=== PATIENT | male | born 1965 | race Caucasian/White ===

== ENCOUNTER 2021-08-25 22:47 | Emergency (ER) | payer BC, SELFPAY ==
[2021-08-25] VITALS (8 sets, daily range): BP systolic 143–176; BP diastolic 96–116; PULSE 70–81; RESP 17–26; TEMP 36.7; O2SAT 96–100
--- NOTE | ~2021-08-25 | XR_ITS ---
EXAMINATION: XR chest 2V EXAM DATE: 08/25/2021 23:27 INDICATION: Right-sided chest pain. TECHNIQUE: Frontal and lateral projections of the chest obtained and reviewed. There is no prior layo dy for comparison. FINDINGS: The lungs are clear. There are no pleural effusions. The cardiomediastinal silhouette i s within normal limits. There is no pneumothorax suspected. The bones and soft tissues are unremark able. IMPRESSION: No acute cardiopulmonary findings. Reviewed, dictated and finalized at location G.
--- NOTE | 2021-08-25 22:50 | ECG_ITS ---
Measurements Intervals [place] Rate: 67 P: 18 ID: [id number] QRS: -31 QRSD: 92 T: -29 QT: 382 QTc: 405 Interpretive Statements SINUS RHYTHM INFERIOR INFARCT, AGE INDETERMINATE BASELINE ARTIFACT- I, II, III, AVR, AVF, V2-V6 ABNORMAL ECG Electronically Signed On 08-26-2021 6:24:11 CDT by Henry Jones D.O.
[2021-08-25 23:48] LABS: Basophils Percent Auto 0.6 % (0.2-1.2); Eosinophils Absolute Auto 0.2 K/mm3 (0-0.3); Hematocrit 44.7 % (42.0-52.0); Hemoglobin 15.1 g/dL (14.0-18.0); Immature Granulocyte Absolute 0.02 K/mm3 (0.00-0.031); Immature Granulocyte Percent A 0.3 % (0-0.5); Immature Platelet Fraction Pct 18.6 % (0.9-11.2); Lymphocytes Absolute Auto 1.69 K/mm3 (0.9-3.2); Lymphocytes Percent Auto 23.3 % (18.3-44.2); Mean Corpuscular HGB Conc 33.8 g/dl (32-36); Mean Corpuscular Hemoglobin 32.6 pg (26-34); Mean Corpuscular Volume 96.5 fl (80-100); Mean Platelet Volume 13.4 fl (7.4-10.4); Monocytes Absolute Auto 0.8 K/mm3 (0.1-0.6); Monocytes Percent Auto 11.3 % (2.6-8.5); Neutrophils Absolute Auto 4.5 K/mm3 (1.3-6.7); Neutrophils Percent Auto 61.5 % (45.5-73.1); Platelet Count Result 174 k/mm3 (150-375); Red Blood Count 4.63 M/mm3 (4.6-6.20); Red Cell Distribution Width 12.8 % (11.5-14.5); White Blood Count 7.3 K/mm3 (4.5-10.0)
[2021-08-25 23:50] LABS: INR 0.9; Partial Thromboplastin Time 27.5 SECONDS (22.3-36.8); Prothrombin Time 11.8 Seconds (11.1-14.7)
[2021-08-26] VITALS (8 sets, daily range): BP systolic 132–139; BP diastolic 85–92; PULSE 66–75; RESP 16–22; O2SAT 98–100
--- NOTE | 2021-08-26 00:36 | PC.NURSE ---
Pt up to bathroom to void. No worsening in chest pain with ambulation. Labs cancelled per lab at 2331, no notification received per this RN. Labs being redrawn at present.
[2021-08-26 00:59] LABS: Alanine Aminotransferase 26 U/L (4-50); Albumin Level 4.6 g/dL (3.5-5.1); Alkaline Phosphatase 61 U/L (38-126); Anion Gap 7 mmol/L (8-16); Aspartate Amino Transferase 28 U/L (17-59); Bilirubin,Total 0.4 mg/dL (0.2-1.3); Blood Urea Nitrogen 16 mg/dL (9-20); Calcium 9.1 mg/dL (8.4-10.2); Carbon Dioxide 32 mmol/L (22-30); Chloride 102 mmol/L (98-107); Estimated CRCL calculation 100 ml/min; Estimated Glomerular Filt Rate > 60; Glucose 110 mg/dL (65-110); Lipase 122 U/L (23-300); Sodium 141 mmol/L (137-145)
[2021-08-26 01:11] LABS: Troponin I < 0.012 ng/mL (0.000-0.034)
--- NOTE | 2021-08-26 01:35 | ED.CHESTPAIN ---
HPI - Chest Pain General Chief Complaint: Chest Pain Stated Complaint: chest pain Time Seen by Provider: 08/25/21 23:15 Source: patient Mode of arrival: ambulatory Limitations: no limitations History of Present Illness HPI narrative: 56-year-old male with past medical history of obesity, and hypertension arrives complaining of chest pain. Patient states pain starts in the epigastric area radiates to the right lower chest worse with a deep breath worse on arrival now resolving. Patient was laying down when he started having the pain he has had GERD before but he said this was more intense. No fever, did have nausea no vomiting. No shortness of breath no leg swelling, no cough, no wheezing. No new medications. Of note patient last had Joaquin sandwich for dinner. Related Data Home Medications Medication Instructions Recorded Confirmed amlodipine 08/25/21 lisinopril 08/25/21 Allergies Allergy/AdvReac Type Severity Reaction Status Date / Time No Known Allergies Allergy Verified 08/25/21 23:15 Review of Systems Review of Systems: CONSTITUTIONAL: no fever, no weight loss, no confusion EYES: no vision changes, no eye pain ENT: no rhinorrhea, no sore throat, no difficulty swallowing CARDIOVASCULAR: chest pain, no leg edema, no palpitations RESPIRATORY: no cough, no shortness of breath, no hemoptysis GASTROINTESTINAL: epigastric and RUQ abdominal pain, positive for nausea, no vomiting, no diarrhea GENITOURINARY: no flank pain, no dysuria, no hematuria SKIN: no rash, no jaundice MUSCULOSKELETAL: no back pain, no trauma. NEUROLOGIC: No headache, no dizziness, no focal weakness PSYCHIATRIC: No hallucinations, no suicidal ideation Exam Narrative: General: alert, afebrile, answering all questions appropriately Head: normocephalic, atraumatic Eyes: EOMI bilaterally, anicteric, no injection ENT: moist mucous membranes, oropharynx patent, no rhinorrhea Neck: supple, trachea midline, no JVD Chest: equal chest rise bilaterally, no chest wall trauma noted Lungs: clear to auscultation bilaterally, respirations unlabored CV: regular rate, no ANA B, calf size equal bilaterally Abd: distended, positive lacey's, no rebound, no gaurding EXT: no deformity noted, moving all extremities equally Skin: warm, dry, no pallor Neuro: alert, oriented x 3; CN 2-12 grossly intact, no dysarthria Psych: affect appropriate, though content normal Course Course Emergency Course: EKG is normal sinus rhythm with no acute changes patient has positive Lacey's originally when he arrived pain now resolved. LFTs normal, lipase normal most likely biliary colic versus GERD. Patient is pain-free, no evidence for acute cardiac event. Patient will be discharged home with pain medication as well medicine for GERD. Patient will return immediately if fever, intractable vomiting, inability tolerate fluids or medications, chest pain shortness of breath. Patient also agrees to follow-up with his primary doctor this week without fail. Vital Signs Vital signs: Vital Signs Temperature 36.7 C 08/25/21 22:53 Pulse Rate 81 08/25/21 22:53 Respiratory Rate 26 H 08/25/21 22:53 Blood Pressure 176/116 H 08/25/21 22:53 Pulse Oximetry 98 08/25/21 22:53 Temperature 36.7 C 08/25/21 22:53 Pulse Rate 66 08/26/21 01:20 Respiratory Rate 16 08/26/21 01:20 Blood Pressure 132/85 08/26/21 01:20 Pulse Oximetry 98 08/26/21 01:20 MDM - Chest Pain Differential Diagnosis Differential diagnosis: Likely pneumothorax, stable angina, chest pain and biliary colic Medical Records Data Attestation: I reviewed the patient's medical records. Lab Data Attestation: I reviewed the patient's lab results. Result diagrams: 08/25/21 23:13 08/26/21 00:37 Labs: Lab Results 08/25/21 08/25/21 08/26/21 Range/Units 23:13 23:14 00:37 WBC 7.3 (4.5-10.0) K/mm3 RBC 4.63 (4.6-6.20) M/mm3 Hgb 15.1 (14.0-18.0) g/dL Hct 44.7
[2021-08-26] MEDS: FAMOTIDINE 20 MG TABLET PO (01:45)
[2021-08-26] MEDS: KETOROLAC 30 MG/ML VIAL (*BKC) IM (01:45)
== END 2021-08-26 01:51 | disposition home or self-care (01) ==
PROVIDERS: Emergency Medicine; Emergency Provider Emergency Medicine; PCP Internal Medicine
DX: R07.89 Other chest pain (principal); K80.50 Calculus of bile duct without cholangitis or cholecystitis without obstruction; I10 Essential (primary) hypertension; E66.9 Obesity, unspecified; Z68.38 Body mass index [BMI] 38.0-38.9, adult
CPT/HCPCS: 36415; 71046; 80053; 83690; 84484; 85025; 85055; 85610; 85730; 93005; 96372; 99284; A9270; J1885

== ENCOUNTER 2022-07-11 12:37 | Emergency (ER) | payer OTHER, SELFPAY ==
[2022-07-11] VITALS (13 sets, daily range): BP systolic 124–149; BP diastolic 79–105; PULSE 64–81; RESP 12–25; TEMP 36.4; O2SAT 93–100
--- NOTE | ~2022-07-11 | CT_ITS ---
EXAMINATION: CT brain wo con DATE: 07/11/2022 15:12 INDICATION: facial tingling/dizzyness . TECHNIQUE: Computed tomography (CT) of the head was performed without intravenous contrast. The mA wa s adjusted according to patient size. Iterative reconstruction technique was employed. The dose-lengt h product was 605.33 mGy-cm. COMPARISON: None FINDINGS: No acute intracranial hemorrhage or extra-axial fluid collection. No hydrocephalus, mass, or herniation. No acute ischemic infarct. Unremarkable dural venous sinus attenuation. No acute osseous abnormality. The aerated spaces are clear. Mild chronic white matter change. Atherosclerotic intracranial calcification. Old left basal ganglia lacunar infarct. IMPRESSION: No acute intracranial process. Reviewed, dictated and finalized at location K.
--- NOTE | 2022-07-11 12:59 | ECG_ITS ---
Measurements Intervals [place] Rate: 61 P: 0 CO: 174 QRS: -40 QRSD: 84 T: -15 QT: 397 QTc: 402 Interpretive Statements SINUS RHYTHM MARKED LEFT AXIS DEVIATION [QRS AXIS < -30] PATTERN CONSISTENT WITH PULMONARY DISEASE COMPARED TO ECG 08/25/2021 23:08:37 LEFT-AXIS DEVIATION NOW PRESENT Electronically Signed On 07-11-2022 15:16:08 CDT by Jena Donato M.D.
[2022-07-11 13:18] LABS: Basophils Absolute Auto 0.1 K/mm3 (0.0-0.1); Basophils Percent Auto 0.8 % (0.2-1.2); Eosinophils Absolute Auto 0.2 K/mm3 (0-0.3); Eosinophils Percent Auto 2.3 % (0-4.4); Hematocrit 46.7 % (42.0-52.0); Hemoglobin 15.7 g/dL (14.0-18.0); Immature Granulocyte Absolute 0.03 K/mm3 (0.00-0.031); Immature Granulocyte Percent A 0.3 % (0-0.5); Lymphocytes Absolute Auto 2.21 K/mm3 (0.9-3.2); Lymphocytes Percent Auto 24.6 % (18.3-44.2); Mean Corpuscular HGB Conc 33.6 g/dl (32-36); Mean Corpuscular Volume 95.3 fl (80-100); Monocytes Absolute Auto 1.1 K/mm3 (0.1-0.6); Monocytes Percent Auto 11.7 % (2.6-8.5); Neutrophils Absolute Auto 5.4 K/mm3 (1.3-6.7); Neutrophils Percent Auto 60.3 % (45.5-73.1); Platelet Count Result 173 k/mm3 (150-375); Red Cell Distribution Width 13.1 % (11.5-14.5)
[2022-07-11 13:29] LABS: Alanine Aminotransferase 23 U/L (6-50); Albumin Level 4.4 g/dL (3.5-5.1); Alkaline Phosphatase 66 U/L (38-126); Anion Gap 9 mmol/L (8-16); Aspartate Amino Transferase 24 U/L (17-59); Bilirubin,Total 0.5 mg/dL (0.2-1.3); Blood Urea Nitrogen 18 mg/dL (9-20); Carbon Dioxide 28 mmol/L (22-30); Chloride 100 mmol/L (98-107); Estimated Glomerular Filt Rate > 60; Glucose 98 mg/dL (65-110); Sodium 137 mmol/L (137-145)
--- NOTE | 2022-07-11 14:32 | ED.DIZZY ---
HPI - Dizziness General Chief Complaint: Dizziness Stated Complaint: lips, tongue tingling and dizzy Time Seen by Provider: 07/11/22 14:31 Source: patient Limitations: no limitations History of Present Illness HPI Narrative: 57 years old white male came to the emergency room by private car because 2 episodes of sudden onset of tingling numbness of the tip of the tongue and lips which one lasted for few seconds then resolved. Currently patient is asymptomatic. He denies any focal weakness, Related Data Home Medications Medication Instructions Recorded Confirmed amlodipine 10 mg tablet 08/25/21 lisinopril 10 mg tablet 08/25/21 Allergies Allergy/AdvReac Type Severity Reaction Status Date / Time No Known Allergies Allergy Verified 01/01/22 15:08 Review of Systems Review of Systems: All systems reviewed & are unremarkable except as noted in HPI and below Exam Narrative: General appearance: Well-developed, well-nourished, intermittent sighing Skin: Normal color Head: Normocephalic, nontraumatic Eyes: Clear conjunctiva ENT: Oropharynx normal, ears normal, nose normal Neck: Supple, nontender Chest and respiratory: Airway patent, no respiratory distress, no accessory muscle use Heart: Regular rate/rhythm Abdomen: Soft, nontender, no organomegaly, quiet bowel sounds Vascular: Normal peripheral pulses, normal capillary refill. Musculoskeletal: Normal range of motion, nontender back Neurologic: Alert and oriented ?3, ASSISTANT BOYS TRACK COACH is normal as tested, no gross motor deficit Course Course Emergency Course: Anxiety-like symptoms, stress reaction is my concern. Work-up did not show anything to explain patient condition. Vital Signs Vital signs: Vital Signs Temperature 36.4 C 07/11/22 12:59 Pulse Rate 73 07/11/22 12:59 Respiratory Rate 20 07/11/22 12:59 Blood Pressure 149/105 H 07/11/22 12:59 Pulse Oximetry 100 07/11/22 12:59 Oxygen Delivery Room Air 07/11/22 12:59 Temperature 36.4 C 07/11/22 12:59 Pulse Rate 81 07/11/22 13:57 Respiratory Rate 16 07/11/22 13:54 Blood Pressure 131/99 H 07/11/22 13:55 Pulse Oximetry 99 07/11/22 13:54 Oxygen Delivery Room Air 07/11/22 12:59 MDM - Dizziness Lab Data Result diagrams: 07/11/22 13:10 07/11/22 13:10 Labs: Lab Results 07/11/22 07/11/22 Range/Units 13:10 13:10 WBC 9.0 (4.5-10.0) K/mm3 RBC 4.90 (4.6-6.20) M/mm3 Hgb 15.7 (14.0-18.0) g/dL Hct 46.7 (42.0-52.0) % MCV 95.3 (80-100) fl MCH 32.0 (26-34) pg MCHC 33.6 (32-36) g/dl RDW 13.1 (11.5-14.5) % Plt Count 173 (150-375) k/mm3 MPV 13.0 H (7.4-10.4) fl Immature Gran % (Auto) 0.3 (0-0.5) % Neut % (Auto) 60.3 (45.5-73.1) % Lymph % (Auto) 24.6 (18.3-44.2) % [place] % (Auto) 11.7 H (2.6-8.5) % Eos % (Auto) 2.3 (0-4.4) % Baso % (Auto) 0.8 (0.2-1.2) % Lymph # (Auto) 2.21 (0.9-3.2) K/mm3 [place] # (Auto) 1.1 H (0.1-0.6) K/mm3 Eos # (Auto) 0.2 (0-0.3) K/mm3 Baso # (Auto) 0.1 (0.0-0.1) K/mm3 Abs Immat Gran (auto) 0.03 (0.00-0.031) K/mm3 Absolute Neuts (auto) 5.4 (1.3-6.7) K/mm3 Absolute Nucleated RBC 0.0 (0.0-0.012) K/mm3 Nucleated RBC % 0.0 (0.0-0.2) % Sodium 137 (137-145) mmol/L Potassium 4.0 (3.4-5.0) mmol/L Chloride 100 (98-107) mmol/L Carbon Dioxide 28 (22-30) mmol/L Anion Gap 9 (8-16) mmol/L BUN 18 (9-20) mg/dL Creatinine 1.00 (0.7-1.3) mg/dL Estim Creat Clear Calc Not Reportable Estimated GFR > 60 (59 - ) Glucose 98 (65-110) mg/dL Calcium 9.0 (8.4-10.2) mg/dL Total Bilirubin 0.5 (0.2-1.3) mg/dL AST 24 (17-59) U/L ALT 23
== END 2022-07-11 14:50 | disposition home or self-care (01) ==
PROVIDERS: Emergency Provider Emergency Medicine; PCP Internal Medicine
DX: F41.9 Anxiety disorder, unspecified (principal); R94.31 Abnormal electrocardiogram [ECG] [EKG]
CPT/HCPCS: 36415; 70450; 80053; 85025; 93005; 99284

== ENCOUNTER 2023-05-09 10:35 | Outpatient (CLI) | payer BC, SELFPAY ==
--- NOTE | ~2023-05-09 | US_ITS ---
EXAMINATION: US soft tissue UE RT DATE: 05/09/2023 10:53 INDICATION: Painless palpable lump at the lateral right humerus TECHNIQUE: Multiple grayscale and Doppler ultrasound images of the region of concern at the lateral m id right upper arm were obtained. COMPARISON: None FINDINGS: There is a 4.8 x 3.5 x 2.7 cm relatively hyperechoic intramuscular mass at the region of concern. On the cine images this appears to be located within the superficial aspect of the surrounding more hypo echoic musculature. Small amount of internal vascular flow identified on color Doppler. IMPRESSION: 1. 4.8 x 3.7 x 2.7 cm nonspecific intramuscular soft tissue mass at the lateral mid right upper arm w hich is most concerning for neoplasm either benign or malignant. Would recommend further evaluation w [facility] pre and postcontrast MRI of the right upper arm to include the axilla. Dr. Hernandez discussed the se findings with Dr. Edwards at 11:15 AM. Reviewed, dictated and finalized at location A. IMPRESSION: 1. 4.8 x 3.7 x 2.7 cm nonspecific intramuscular soft tissue mass at the lateral mid right upper arm which is most concerning for neoplasm either benign or mal ignant. Would recommend further evaluation with pre and postcontrast MRI of the right upper arm to include the axilla. Dr. Hernandez discussed these findings w [facility] Dr. Edwards at 11:15 AM.
== END 2023-05-09 10:36 | disposition home or self-care (01) ==
LOC: CHSIMG 10:37
PROVIDERS: PCP Internal Medicine; Visit Provider Internal Medicine
DX: R22.31 Localized swelling, mass and lump, right upper limb (principal)
CPT/HCPCS: 76882

== ENCOUNTER 2023-05-12 10:36 | Outpatient (CLI) | payer BC, SELFPAY ==
--- NOTE | ~2023-05-12 | MR_ITS ---
EXAMINATION: MR humerus RT wo/w con DATE: 05/12/2023 12:03 INDICATION: Right arm mass TECHNIQUE: Magnetic resonance imaging (MRI) of the right upper arm was performed without and with 20 mL Multihance intravenous contrast. A marker was placed over the mass. Sequences included axial, sag ittal and coronal T1-weighted FSE and fluid sensitive FSE STIR, axial T1-weighted FS FSE and post con trast axial, sagittal and coronal T1-weighted FS FSE. COMPARISON: Ultrasound dated 05/09/2023 FINDINGS: The intramuscular mass of concern arises in the mid to distal upper arm along the fascial plane separ ating the lateral head of the triceps and the possible brachial radialis and along side the radial ne urovascular bundle but which exerts mass effect. The mass which measures 6.9 cm proximal to distal an d 4.2 x 2.4 cm in maximal transaxial dimensions demonstrates homogeneous T1-weighted and saturable fa t signal consistent with an intramuscular lipoma. No abnormal enhancing soft tissue component. No oth er abnormal masses or fluid collections identified. Visualized musculature is otherwise unremarkable. Normal bone marrow signal throughout. IMPRESSION: 1. Right upper arm mass of concern corresponds to a benign 6.9 x 4.2 x 2.4 cm intramuscular lipoma. Reviewed, dictated and finalized at location A. IMPRESSION: 1. Right upper arm mass of concern corresponds to a benign 6.9 x 4.2 x 2.4 cm i ntramuscular lipoma.
== END 2023-05-12 10:37 | disposition home or self-care (01) ==
LOC: CHSIMG 10:41
PROVIDERS: PCP Internal Medicine; Visit Provider Internal Medicine
DX: R22.31 Localized swelling, mass and lump, right upper limb (principal)
CPT/HCPCS: 73220; A9577

== ENCOUNTER 2023-06-13 00:49 | Day surgery (SDC) | payer BC, SELFPAY ==
[2023-06-09 08:21] VITALS: BMI 35.4
--- NOTE | 2023-06-09 08:27 | PC.NURSE ---
Report to the Outpatient Waiting Room, entrance under the green pavilion located off [facility], at time__1130_ on date _06/13/23. Planned Procedure Time: 1330_. Time changes happen often and if your time is changed the preop area will call you the afternoon before. - You and your visitor will be asked to self-screen and do not enter if you have any COVID symptoms. - A mask is optional within the hospital at this time. Patients may have clear liquids (water, carbonated beverages, clear teas, apple juice) until 3 hours prior to surgery with a maximum of 20 ounces. - No food from midnight until time of surgery - Infants may have breast milk until 4 hours before surgery, infant formula 6 hours prior to surgery. - Children will be allowed to drink immediately following surgery. If applicable, please bring a bottle or sippy cup to assist with drinking. Juice, water, soda, and popsicles are readily available. For infants on formula, please bring formula the day of surgery. Pacifiers are allowed. Take the following medications with a SIP of water the morning of surgery: __amlodipine, escitalopram DO NOT STOP ANY OF YOUR OTHER PRESCRIPTION MEDICATIONS PRIOR TO SURGERY ?EXCEPT THE FOLLOWING Medications to discontinue per physician none Date to take last dose Please no make-up, nail thai, hairspray, perfume, deodorant, or body powder the day of surgery. No jewelry (including any body piercings) or valuables the day of surgery, leave them at home. Please take a shower or bath the night before, or the morning of, surgery with HIBICLENS antibacterial soap. Wear comfortable, loose fitting clothing. Children are encouraged to wear pajamas. - Jewelry must be removed prior to entering the operating room. Rings and piercings that are not removed may be cut off. - The hospital will not accept responsibility for valuables. - Please leave all valuables, including medications, at home the day of surgery. If you are going home after surgery, a licensed garbage truck driver must drive you home. - NO public transportation without another adult if you receive anesthesia. - We recommend that an adult stay with you for 24 hours following discharge. - We also recommend that you do not drive, make important decision, drink alcoholic beverages, or take any drugs that were not prescribed by your health care provider for at least 24 hours after your discharge time. For Pediatric surgeries, we recommend two adults accompany the child home. Follow any additional instructions given to you from your surgeon. If you or anyone in your household have experienced Covid symptoms in the past week, please notify your surgeon or the nurse liaison at the phone number below for possible testing. Telephone instructions given to __patient and asked if any additional questions and then verbalized understanding. Patient advised to call surgeon office or pre surgery nurse liaison [phone] if any additional questions.
--- NOTE | 2023-06-10 18:48 | WPDANESEPP ---
Anes - Eval Pre Procedure Procedure: Operation Date: 06/13/23 13:30 Proposed Procedures p Excision of Right Upper Arm Intramuscular Lipoma - Benedict Cuello MD Date/Time: 06/10/23 18:48 Pre Op Diagnosis: right upper arm lipoma Patient Data Age: 58 Gender: M Height: 1.78 m Weight: 112 kg Allergies Allergy/AdvReac Type Severity Reaction Status Date / Time No Known Allergies Allergy Verified 06/09/23 08:19 Home Medications Medication Instructions Recorded Confirmed Type amlodipine 10 mg tablet 10 mg PO DAILY 08/25/21 06/09/23 History lisinopril 10 mg tablet 10 mg PO DAILY 08/25/21 06/09/23 History allopurinol 100 mg tablet 300 mg PO DAILY 05/17/23 06/09/23 History escitalopram oxalate 10 mg tablet 10 mg PO DAILY 05/17/23 06/09/23 History Patient hx anesthesia problems: none Family hx anesthesia problems: none Results Review: All pre-operative results and documents have been reviewed as part of the pre-operative evaluation. FOR[facility]LY [facility] Past Medical History Medical History (Updated 06/10/23 @ 18:48 by Mary Alba CRNA) Anxiety High blood pressure Obesity (BMI 30-39.9) Surgical History Surgical History Hx of hernia repair Hx of thumb surgery Family History Family History Other Hypertension Social History Social History Smoking status: Never smoker Alcohol intake: current Drinks per week: 10 Alcohol use details: Socially Living arrangements: with family Exam Day of Procedure 06/10/23 18:48
[2023-06-13] MEDS: LACTATED RINGERS 1,000 ML 30 ML IV CONT (12:20)
[2023-06-13 12:22] VITALS: BP 149/99; PULSE 65; RESP 16; TEMP 36.5; O2SAT 97
--- NOTE | 2023-06-13 12:35 | WPDHPUPDATE1 ---
History and Physical Update Update Date/Time: 06/13/23 12:35 History and Physical has been reviewed, including an updated exam of the patient. There are NO changes in the patient's condition. Risks, benefits, and alternatives have been discussed and questions answered. Patient agrees to proceed with procedure.
--- NOTE | 2023-06-13 13:44 | P.PNAN_ITS ---
Anes - Eval Final PreProcedure Day of Procedure 06/13/23 13:44 Patient weight: obese Heart: regular rate and rhythm Lungs: clear to auscultation Airway: Mallampati scale class II Neurological: alert and oriented Last oral intake: >/= 8 hours ASA classification: II Emergent: no Anesthetic plan: proceed Anesthesia type and monitoring: general GIVS and standard monitoring Results Review: All pre-operative results and documents have been reviewed as part of the pre- operative evaluation. Informed Consent: The patient's anesthetic plan and its attendant risks and benefits were discussed with the patient/family/POA. Questions were solicited and answers provided to the satisfaction of the patient/family/POA.
[2023-06-13] MEDS: ceFAZolin 2 GM/D5W 50 ML 2 GM/50 ML BAG IVPB (13:49)
[2023-06-13] MEDS: BUPivacaine HCL 0.5% 10 ML AMP 20 ML INFILTRATE (14:15)
[2023-06-13 15:00] VITALS: BP 145/92; PULSE 83; RESP 16; O2SAT 97
[2023-06-13 15:30] VITALS: BP 143/90; PULSE 70; RESP 16
[2023-06-13] MEDS: oxyCODONE HCL (*CRX) 5 MG TAB IR PO (15:40)
--- NOTE | 2023-06-13 15:53 | P.OP_ITS ---
Procedure Note - Detailed Date of Procedure 06/13/23 Pre-op Diagnosis right upper arm lipoma Post-op Diagnosis Other (Right upper arm intramuscular lipoma.) Procedure Performed Excision of right upper arm intramuscular lipoma Surgeon Benedict Cuello MD Anesthesia General Indications Patient is a 58-year-old white male presented with a slowly enlarging mass in the dorsal lateral aspect of the right upper in what appeared to be in the triceps muscle. MRI preoperatively revealed this to be an intramuscular lipom atous mass. Malignant features were seen. He presents now for excision of this intramuscular lipomatous mass. Findings [id number] deep intramuscular lipomatous appearing mass extending down to the humerus. Description of Procedure After informed consent was obtained patient brought to the operating room was placed in a supine position then general LMA anesthesia was administered. The right arm was prepped circumferentially in a sterile fashion all the way from the fingertips to the axilla in the usual sterile fashion. A time-out was then performed correctly identifying the patient as well as procedure to be performed. Site marking was verified. He was given Ancef for perioperative IV antibiotics. I then proceeded to make a longitudinal incision over the mass in the dorsal lateral aspect of the right upper arm. Dissection carried down through the dermis skin with a scalpel then electrocautery was used to dissect down through the subcutaneous tissues until I reached the fascia. I then opened the fascia utilizing electrocautery to expose the distal fibers of the triceps muscle. I could easily see a lipomatous mass within the triceps muscle with a good capsule around it. I then placed retractors to improve exposure and then proceeded to dissect around the lipomatous mass electrocautery taking care to not divide too much muscle. The a lipomatous mass extended all the way down to the humerus bone. It did not invade into the bone. I then excised off the the ostomy utilized electrocautery and then measured the mass. Was 6cm in length by 5cm in width by 2cm in depth. It was sent to pathology for examination. There was 1 bleeding artery which was likely a muscular artery which was ligated with a 2-0 chromic suture to achieve hemostasis. The wound was then irrigated with sterile saline solution hemostasis was good. I then close incision by reapproximating the edges of the fascia utilizing interrupted 2-0 Vicryl sutures. Skin the subcutaneous tissues were approximated utilizing interrupted 3-0 Vicryl sutures. The skin edges were approximated Adelina running subcuticular 4-0 Monocryl suture. Incision was then cleaned and then skin glue was applied. 4x4 gauze Tegaderm and a Gopal wrap was used for final dressing. The patient tolerated the procedure well no complications. All sponges, needles, and instrument counts were correct at the end procedure. EBL was __50_cc. The patient was awakened and taken to recovery in stable and satisfactory condition. Estimated Blood Loss -50.0 Drains No Packing No Pathology Yes (Lipomatous mass to pathology) Complications No immediate complications Condition Stable Disposition PACU [facility] Billing Surgery - Charge Forward: Surgery Billing
== END 2023-06-13 16:09 | disposition home or self-care (01) ==
PROVIDERS: PCP Internal Medicine; Visit Provider Surgery
PROC: (CPT 11406; principal; 2023-06-13 13:30)
DX: D17.21 Benign lipomatous neoplasm of skin and subcutaneous tissue of right arm (principal); I10 Essential (primary) hypertension; F41.9 Anxiety disorder, unspecified; E66.9 Obesity, unspecified; Z68.36 Body mass index [BMI] 36.0-36.9, adult; Z82.49 Family history of ischemic heart disease and other diseases of the circulatory system
CPT/HCPCS: 11406; 24073; 88304; A9270; J0690; J2250; J2405; J2704; J3010; J7120

== ENCOUNTER 2024-10-30 14:32 | Outpatient (CLI) | payer SELFPAY ==
--- NOTE | ~2024-10-30 | MR_ITS ---
EXAMINATION: MR knee RT wo con DATE: 10/30/2024 16:00 INDICATION: Right knee pain TECHNIQUE: Magnetic resonance imaging (MRI) of the right knee was performed without intravenous contr ast. Sequences included coronal PD-weighted FSE, coronal PD-weighted FS FSE, sagittal T2-weighted FS E, sagittal PD-weighted FS FSE and axial PD weighted fat saturated FSE. COMPARISON: None. FINDINGS: Medial compartment: Complex tear of the body and posterior horn of the medial meniscus. There is partial thickness chondr al ulceration involving greater than 50% the cartilage thickness but without degenerative subchondral changes at the anterior to central weightbearing medial femoral condyle. Additional deep chondral ul ceration with mild underlying subarticular edema-like signal change along the plantar medial rim of t he medial tibial plateau. Lateral compartment: Lateral meniscus is normal. Small region of heterogeneous cartilage signal suggesting partial-thickne ss fissuring at the medial side of the lateral tibial plateau. Articular cartilage is otherwise dayanara l. Patellofemoral compartment: There is deep trochlear chondral ulceration with underlying small central subchondral osteophytes at the central aspect of the lateral trochlea and at the inferior aspect of the medial trochlea. There a re some shallow chondral surface irregularity along the central aspect of the lateral patellar facet. Ligaments and tendons: Anterior and posterior cruciate ligaments are normal. The medial collateral ligament and fibular yumiko ateral ligament complex are normal. The extensor mechanism is normal with band of magic angle artifac t in the distal patellar tendon.. The visualized medial and lateral hamstring tendons as well as the iliotibial band are normal. Fluid: Physiologic amount of fluid in the joint space. No loose osteochondral bodies identified. Osseous/other: Aside from the previous noted subarticular edema-like signal change at the medial tibial plateau ther e is normal marrow signal throughout. No fracture or pathologic marrow replacing process. IMPRESSION: 1. Complex medial meniscal tear. 2. 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 Reviewed, dictated and finalized at location A. ICATION OPERATIONS ENGINEER IMPRESSION: 1. Complex medial meniscal tear. 2. Mild tricompartmental osteoarthritis with medial and patellofemoral compartm ent predominance where there are regions of moderate and high-grade chondromala parker.
== END 2024-10-30 14:33 | disposition home or self-care (01) ==
PROVIDERS: Visit Provider Internal Medicine
DX: S83.241A Other tear of medial meniscus, current injury, right knee, initial encounter (principal); X58.XXXA Exposure to other specified factors, initial encounter; M17.11 Unilateral primary osteoarthritis, right knee; M94.261 Chondromalacia, right knee
CPT/HCPCS: 73721

== ENCOUNTER 2025-06-04 15:11 | Outpatient (CLI) | payer BC, SELFPAY ==
--- NOTE | ~2025-06-04 | XR_ITS ---
EXAMINATION: XR chest 2V 06/04/2025 15:56 INDICATION: Chest tightness and dyspnea PROCEDURE: 2 view chest COMPARISON: 08/25/2021 FINDINGS: The lungs are clear. The cardiomediastinal silhouette is within normal limits. There are no pleural effusions. There is no pneumothorax suspected. IMPRESSION: 1: NO ACUTE CARDIOPULMONARY DISEASE. Reviewed, dictated and finalized at location B.
--- OUTSIDE RECORDS SUMMARY | 2025-06-04 15:14 | XMS_ITS | Referral Summary ---
Author Organization [facility] Address [address] [place] [id number] Care Team Providers Care Pockets And Pieces Necktie Operator Name Role Phone Ben Edwards MD Primary Care Provider [phone] Allergies No known active allergies Medications allopurinoL (ZYLOPRIM) 300 mg tablet TAKE 1 TABLET BY MOUTH ONCE DAILY START THIS WHEN ACUTE FLARE OF GOUT RESOLVES 11/27/2020 Active amLODIPine (NORVASC) 10 mg tablet Take 10 mg by mouth daily 11/20/2020 Active lisinopriL (PRINIVIL,ZESTR [place]) 10 mg tablet Take 10 mg by mouth nightly at bedtime. 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 Gender Identity Not on file Sexual Orientation Not on file Last Filed Vital Signs Vital Sign Reading Time Taken Comments Blood Pressure - - Pulse - - Temperature - - Respiratory Rate - - Oxygen Saturation - - Inhaled Oxygen Concentration - - Weight 116.1 kg (256 lb) 12/30/2022 11:28 AM REDIPPER Height 177.8 cm (5' 10) 12/30/2022 11:28 AM REDIPPER Body Mass Index 36.73 12/30/2022 11:28 AM REDIPPER Plan of Treatment Not on file [place] Care Teams Pockets And Pieces Necktie Operator Relationship Specialty Start Date End Date Ben Edwards MD PCP - General Internal Medicine 12/30/22
--- OUTSIDE RECORDS SUMMARY | 2025-06-04 15:14 | XMS_ITS | Clinical Summary ---
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 Gender Identity Not on file Sexual Orientation Not on file Obstetrics History Last Filed Vital Signs Vital Sign Reading Time Taken Comments Blood Pressure - - Pulse - - Temperature - - Respiratory Rate - - Oxygen Saturation - - Inhaled Oxygen Concentration - - Weight 116.1 kg (256 lb) 12/30/2022 11:28 AM SALES INSPECTOR Height 177.8 cm (5' 10) 12/30/2022 11:28 AM SALES INSPECTOR Body Mass Index 36.73 12/30/2022 11:28 AM SALES INSPECTOR Plan of Treatment Health Maintenance Due Date Last Done Comments Colon Cancer Screening-Colonoscopy 1965 Depression Screening 1965 Hepatitis C Screening 1965 Prostate Cancer Screening-PSA 1966 Hepatitis B Screening 1984 Regular Well Visit/Exam 18-64 1984 Zoster Vaccine (1 of 2) 2016 Influenza Vaccine (Season Ended) 2025 DTaP/Tdap/Td Vaccine (2 - Td or Tdap) 05/20/2030 05/20/2020 Pneumococcal vaccine <65 Aged Out No longer eligible based on patient's age to complete this topic [place] Care Teams Fisher Lampara Net Relationship Specialty Start Date End Date Ben Edwards MD PCP - General Internal Medicine 12/30/22
[2025-06-04 15:32] LABS: Hematocrit 45.3 % (40.0-54.0); Hemoglobin 15.7 g/dL (14.0-18.0); Mean Corpuscular HGB Conc 34.7 g/dL (32-36); Mean Corpuscular Hemoglobin 32.0 pg (27.0-31.0); Mean Corpuscular Volume 92.4 fL (78.0-102.0); Platelet Count Result 182 K/mm3 (150-420); Red Blood Count 4.90 M/mm3 (4.70-6.10); White Blood Count 7.4 K/mm3 (4.8-10.8)
[2025-06-04 15:44] LABS: Alanine Aminotransferase 31 U/L (6-50); Albumin Level 4.2 g/dL (3.5-5.1); Alkaline Phosphatase 57 U/L (38-126); Anion Gap 6 mmol/L (4-12); Aspartate Amino Transferase 28 U/L (17-59); Bilirubin,Total 0.5 mg/dL (0.2-1.3); Blood Urea Nitrogen 21 mg/dL (9-20); Calcium 8.7 mg/dL (8.4-10.2); Carbon Dioxide 27 mmol/L (22-30); Chloride 106 mmol/L (98-107); Creatine Kinase 52 U/L (55-170); Estimated Glomerular Filt Rate > 60; Glucose 117 mg/dL (65-110); Osmolality Calculated 292 mOsm/kg (285-295); Potassium 4.1 mmol/L (3.4-5.0); Sodium 139 mmol/L (137-145); Total Protein 7.3 g/dL (6.3-8.2)
[2025-06-04 15:58] LABS: NT Pro B Type Natriuretic Pept < 20 pg/mL (19.9-100); Troponin I < 0.012 ng/mL (0.000-0.034)
[2025-06-04 16:02] LABS: Add Urine Microscopic? NO; Appearance Urine Clear (Clear); Glucose Urine UA Negative (Negative); Leukocyte Esterase Ur Negative (Negative); Nitrate Urine Negative (Negative); Specific Grav Ur 1.010 (1.010-1.020)
[2025-06-04 16:17] LABS: Thyroid Stimulating Hormone 1.630 uIU/mL (0.465-4.680)
== END 2025-06-04 15:12 | disposition home or self-care (01) ==
LOC: CHSIMG 15:12
PROVIDERS: PCP Internal Medicine; Visit Provider Internal Medicine
DX: R07.89 Other chest pain (principal); R06.00 Dyspnea, unspecified
CPT/HCPCS: 36415; 71046; 80053; 81003; 82550; 82553; 83880; 84443; 84484; 85027; 85380

== ENCOUNTER 2025-08-02 08:46 | Outpatient (CLI) | payer BC, SELFPAY ==
--- NOTE | ~2025-08-02 | NM_ITS ---
EXAMINATION: NM stress w perf spect multi DATE: 08/02/2025 12:02 INDICATION: Dyspnea TECHNIQUE: Rest images were obtained following intravenous administration of 10.6 mCi Tc99m tetrofosmin (iSirona). The patient performed an exercise activity. At peak exercise, 34 mCi Tc99m tetrofosmin (Myoview) was administered intravenously, and stress images were obtained. Data was reconstructed into short axis and horizontal and vertical long axis SPECT images. Gated SPECT images were also obtained. COMPARISON: None. FINDINGS: There is normal left ventricular perfusion without definite evidence of reversible or fixed perfusion abnormality to suggest ischemia or infarction. There is normal left ventricular chamber size, wall motion and ejection fraction. Left ventricular ejection fraction measures 64%. IMPRESSION: 1. Normal myocardial perfusion at rest and during stress. 2. Left ventricular ejection fraction measuring 64%. Reviewed, dictated and finalized at location A.
--- NOTE | 2025-08-02 08:48 | ECHO_ITS ---
Patient Info Name: Mark Garcia Age: 60 years : 1965 Gender: Male Ht: 70 in Wt: 260 lbs BSA: 2.46 m2 HR: 69 bpm BP: 156 / 104 mmHg Technical Quality: Fair Exam Date: 08/02/2025 9:03 AM Patient Status: O Admit Date: 08/02/2025 Exam Type: CA echo doppler color flow Complete two-dimensional, color flow and Doppler transthoracic echocardiogram is performed. Staff Referring Physician: Henry Jones DO Managed Services Consultant: Shahana Dobbs Attending Provider: Henry Jones DO Summary 1. Complete two-dimensional, color flow and Doppler transthoracic echocardiogram is performed. 2. Left ventricular chamber dimension is normal. 3. Left ventricular systolic function is normal, estimated at 60-65. 4. The left ventricular diastolic function is normal. 5. E/e' 9 is minimally elevated. 6. There is mild mitral valve regurgitation. Left Ventricle E/e' 9 is minimally elevated. Left ventricular chamber dimension is normal. Left ventricular systolic function is normal, estimated at 60-65. The left ventricular diastolic function is normal. Right Ventricle Right ventricular chamber dimension is normal. Right ventricular systolic function is normal and with normal TAPSE 2.2 cm. Left Atria Left atrial chamber dimension is normal. Right Atria Right atrial chamber dimension is normal. Aortic Valve The aortic valve is trileaflet. There is no aortic valve stenosis. There is no aortic valve regurgitation. Pulmonic Valve There is no pulmonic regurgitation. Mitral Valve There is no mitral valve stenosis. There is mild mitral valve regurgitation. Tricuspid Valve There is no tricuspid valve regurgitation. Pericardium/Pleural There is no pericardial effusion. Inferior Vena Cava Normal inferior vena cava with >50% collapse upon inspiration consistent with normal right atrial pressure, 5 mmHg. Aorta The aortic root size at the sinus of Valsalva is normal. Left Ventricular Outflow Tract Name Value Normal LVOT 2D LVOT Diameter 2.1 cm LVOT Doppler LVOT Peak Velocity 82 cm/s LVOT Peak Gradient 3 mmHg LVOT Mean Gradient 2 mmHg LVOT VTI 18 cm LVOT VTI/AV VTI Ratio 0.7 LVOT Stroke Volume 61 ml LVOT CO 12.2 l/min LVOT CI 5.0 l/min/m2 Pulmonic Valve Name Value Normal PV Doppler PV Peak Velocity 95 cm/s PV Peak Gradient 4 mmHg Mitral Valve Name Value Normal MV Diastolic Function MV E Peak Velocity 90 cm/s MV A Peak Velocity 70 cm/s MV E/A 1.3 MV Decel Time (PW) 224 ms MV Annular TDI MV E/e' (Septal) 10.5 MV E/e' (Lateral) 8.4 MV E/e' (Average) 9.5 Tricuspid Valve Name Value Normal Estimated PAP/RSVP RA Pressure 5 mmHg <=5 TV Annular TDI TV Lateral Lu s' Velocity 10.5 cm/s >=9.5 Aorta Name Value Normal Ascending Aorta Ao Root Diameter (MM) 3.5 cm Ao Root Diam Index (MM) 1.4 cm/m2 Aortic Valve Name Value Normal AV Doppler AV Peak Velocity 112 cm/s AV Peak Gradient 5 mmHg AV Mean Gradient 3 mmHg AV VTI 27 cm AV Area (Cont Eq VTI) 2.3 cm2 >=3.0 AV Area (Cont Eq Preston) 2.5 cm2 AV DI (Preston) 0.73 AV Regurgitation 2D LVOT Area 3.4 cm2 Ventricles Name Value Normal LV Dimensions 2D/MM IVS Diastolic Thickness (2D) 1.3 cm 0.6-1.0 LVID Diastole (2D) 5.8 cm 4.2-5.8 LVIW Diastolic Thickness (2D) 1.2 cm 0.6-1.0 LVID Systole (2D) 4.2 cm 2.5-4.0 LVOT Diameter 2.1 cm LV Mass (2D Cubed) 321.36 g 88.00-224.00 LV Mass Index (2D Cubed) 131 g/m2 49-115 Relative Wall Thickness (2D) 0.43 <=0.42 LV Fractional Shortening/Ejection Fraction 2D/MM LV Fractional Shortening (2D) 28 % 25-43 LV EF (2D Teichholz) 54 % LV Diastolic Volume (4C MOD) 127 ml LV EF (4C MOD) 65 % LV Diastolic Volume (2C MOD) 125 ml LV EF (2C MOD) 56 % LV Diastolic Volume (BP MOD) 129 ml 62-150 LV Diastolic Volume Index (BP MOD) 52 ml/m2 34-74 LV Systolic Volume (BP MOD) 50 ml 21-61 LV Systolic Volume Index (BP MOD) 20 ml/m2 11-31 LV EF (BP MOD) 61 % 52-72 LV Diastolic Length (4C) 8.6 cm LV Systolic Length (4C) 6.4 cm LV Stroke Volume (4C MOD) 82 ml Atria Name Value Normal LA Dimensions LA Volume (4C A-L) 67 ml LA Volume (BP A-L) 56 ml RA Dimensions RA Area (4C) 21.1 cm2 <=18.0 Report Signatures
--- OUTSIDE RECORDS SUMMARY | 2025-08-02 08:54 | XMS_ITS | Clinical Summary ---
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 Gender Identity Not on file Sexual Orientation Not on file Obstetrics History Last Filed Vital Signs Vital Sign Reading Time Taken Comments Blood Pressure - - Pulse - - Temperature - - Respiratory Rate - - Oxygen Saturation - - Inhaled Oxygen Concentration - - Weight 116.1 kg (256 lb) 12/30/2022 11:28 AM TV TECHNICIAN Height 177.8 cm (5' 10) 12/30/2022 11:28 AM TV TECHNICIAN Body Mass Index 36.73 12/30/2022 11:28 AM TV TECHNICIAN Plan of Treatment Health Maintenance Due Date Last Done Comments Colon Cancer Screening-Colonoscopy 1966 Depression Screening 1966 Hepatitis C Screening 1966 Prostate Cancer Screening-PSA 1966 Hepatitis B Screening 1984 Regular Well Visit/Exam 18-64 1984 Zoster Vaccine (1 of 2) 2016 Influenza Vaccine (#1) 2025 DTaP/Tdap/Td Vaccine (2 - Td or Tdap) 05/20/2030 05/20/2020 Pneumococcal vaccine <65 Aged Out No longer eligible based on patient's age to complete this topic [place] Care Teams Chute Feeder Relationship Specialty Start Date End Date Ben Edwards MD PCP - General Internal Medicine 12/30/22
--- NOTE | 2025-08-02 09:25 | EST_ITS ---
Patient Info Name: Mark Garcia Age: 60 years : 1965 Gender: Male Ht: 70 in Wt: 260 lbs BSA: 2.46 m2 HR: 57 bpm BP: 125 / 72 mmHg Exam Date: 08/02/2025 9:25 AM Patient Status: O Admit Date: 08/02/2025 Exam Type: CA stress test treadmill w NM A nuclear stress test was performed. Staff Referring Physician: Henry Jones DO Attending Provider: Henry Jones DO Exercise Technologist: Amanda Poe Exercise Physician: Henry Jones DO Summary 1. 1. Negative Jose A exercise stress test for ischemic ST changes by ECG criteria. 2. 2. Good functional capacity, achieving 10 METs of workload. 3. 3. Appropriate HR response to exercise. 4. 4. Appropriate HR recovery at 1 minute post exercise. 5. 5. Nuclear scan to follow and will be reported separately. Please correlate with it. 6. 6. Patient informed of the above results. Protocol: Jose A Stress ECG Details Stage: REST Duration (min): 1 min : 8 sec Speed (mph): 0.0 Grade (%): 0 HR (bpm): 59 SBP (mmHg): 125 DBP (mmHg): 72 METS: --- Stage: REST Duration (min): 6 min : 28 sec Speed (mph): 0.0 Grade (%): 0 HR (bpm): 77 SBP (mmHg): 125 DBP (mmHg): 72 METS: --- Stage: STAGE 1 Duration (min): 1 min : 0 sec Speed (mph): 1.7 Grade (%): 10 HR (bpm): 93 SBP (mmHg): 125 DBP (mmHg): 72 METS: --- Stage: STAGE 1 Duration (min): 2 min : 0 sec Speed (mph): 1.7 Grade (%): 10 HR (bpm): --- SBP (mmHg): 125 DBP (mmHg): 72 METS: --- Stage: STAGE 1 Duration (min): 3 min : 0 sec Speed (mph): 1.7 Grade (%): 10 HR (bpm): 98 SBP (mmHg): 125 DBP (mmHg): 72 METS: --- Stage: STAGE 2 Duration (min): 1 min : 0 sec Speed (mph): 2.5 Grade (%): 12 HR (bpm): 113 SBP (mmHg): 125 DBP (mmHg): 72 METS: --- Stage: STAGE 2 Duration (min): 2 min : 0 sec Speed (mph): 2.5 Grade (%): 12 HR (bpm): 112 SBP (mmHg): 125 DBP (mmHg): 72 METS: --- Stage: STAGE 2 Duration (min): 3 min : 0 sec Speed (mph): 2.5 Grade (%): 12 HR (bpm): 116 SBP (mmHg): 125 DBP (mmHg): 72 METS: --- Stage: STAGE 3 Duration (min): 1 min : 0 sec Speed (mph): 3.4 Grade (%): 14 HR (bpm): 126 SBP (mmHg): 192 DBP (mmHg): 79 METS: --- Stage: STAGE 3 Duration (min): 2 min : 0 sec Speed (mph): 3.4 Grade (%): 14 HR (bpm): 134 SBP (mmHg): 192 DBP (mmHg): 79 METS: --- Stage: STAGE 3 Duration (min): 3 min : 0 sec Speed (mph): 3.4 Grade (%): 14 HR (bpm): 145 SBP (mmHg): 192 DBP (mmHg): 79 METS: --- Stage: RECOVERY Duration (min): 0 min : 59 sec Speed (mph): 0.0 Grade (%): 0 HR (bpm): 107 SBP (mmHg): 199 DBP (mmHg): 102 METS: --- Stage: RECOVERY Duration (min): 1 min : 59 sec Speed (mph): 0.0 Grade (%): 0 HR (bpm): 96 SBP (mmHg): 199 DBP (mmHg): 102 METS: --- Stage: RECOVERY Duration (min): 2 min : 59 sec Speed (mph): 0.0 Grade (%): 0 HR (bpm): 91 SBP (mmHg): 199 DBP (mmHg): 102 METS: --- Stage: RECOVERY Duration (min): 3 min : 30 sec Speed (mph): 0.0 Grade (%): 0 HR (bpm): 95 SBP (mmHg): 152 DBP (mmHg): 89 METS: --- Rest HR: 77 bpm Peak HR: 144 bpm Rest Sys BP: 125 mmHg Peak Sys BP: 199 mmHg Max Pred HR: 161 bpm % Max Pred HR: 89 % Target HR: 137 bpm Max RPP: 28,656 bpm*mmHg Thomas Score: 2 Termination Reason: Reached target heart rate or workload Cardiac Symptoms: Shortness of breath Max ST Seg Deviation: 1.50 mm Total Time: 9 min : 0 sec Rest Suresh BP: 72 mmHg Peak Suresh BP: 102 mmHg Angina Score: None Total METS: 10.3 Resting ECG Sinus rhythm. Stress ECG No ST changes. Arrhythmias None. Report Signatures
== END 2025-08-02 08:47 | disposition home or self-care (01) ==
PROVIDERS: PCP Internal Medicine; Visit Provider Internal Medicine Cardiovascular Disease
DX: I34.0 Nonrheumatic mitral (valve) insufficiency (principal)
CPT/HCPCS: 78452; 93017; 93306; A9502

== ENCOUNTER 2025-10-02 14:04 | Outpatient (CLI) | payer BC, SELFPAY ==
--- NOTE | ~2025-10-02 | CT_ITS ---
EXAM/PROCEDURE: CT abdomen pelvis wo con HISTORY: Unilateral inguinal hernia, without obstruction COMPARISON: None available. TECHNIQUE: Noncontrast CT of the abdomen and pelvis FINDINGS: Directed noncontrast CT of the abdomen and pelvis The bowel gas pattern is nonobstructive with no free air free fluid or pneumatosis. Moderate to large left and small to moderate right-sided omentum containing inguinal hernias. There are also strandy changes within both hernias, left greater than right. Herniated omentum on the left side extends into the scrotal region with the greatest dimension of the herniated omentum measuring approximately 12 x 7 x 6 cm in the long by AP by transverse dimensions. See image 148 series 2. A 1.3 x 1.3 cm peritoneal defects/left or umbilical hernia with small to moderate amount of herniated omentum also present as seen on image 89 series 2. No other hernias seen. No hydroureteronephrosis. Cholelithiasis with contracted gallbladder, normal size appendix and aorta, and normal appearance of the urinary bladder for technique. Prostate moderately enlarged. No bulky lymphadenopathy or masses seen. Lung bases clear. Bones appear intact. Degenerative changes noted throughout the lumbar spine. Mild apical scar changes of the aorta. Mild fatty liver changes. IMPRESSION: 1. Directed noncontrast exam demonstrating moderate to large left inguinal hernia with herniated omentum extending into the left hemiscrotum. No herniated intestines. 2. Small hernias in the right inguinal canal and left periumbilical region as described above. 3. Cholelithiasis with contracted gallbladder. No CT evidence of acute cholecystitis. Reviewed, dictated and finalized at location A. [employer] IMPRESSION: 1. Directed noncontrast exam demonstrating moderate to large left inguinal casper ia with herniated omentum extending into the left hemiscrotum. No herniated int estines. 2. Small hernias in the right inguinal canal and left periumbilical region as d escribed above. 3. Cholelithiasis with contracted gallbladder. No CT evidence of acute cholecys titis.
== END 2025-10-02 14:05 | disposition home or self-care (01) ==
LOC: MICIMG 14:05
PROVIDERS: PCP Internal Medicine; Visit Provider Surgery
DX: K40.20 Bilateral inguinal hernia, without obstruction or gangrene, not specified as recurrent (principal); K42.0 Umbilical hernia with obstruction, without gangrene; K80.20 Calculus of gallbladder without cholecystitis without obstruction
CPT/HCPCS: 74176